=== PATIENT | female | born 1960 | race Caucasian/White ===

== ENCOUNTER 2024-04-26 20:15 | Emergency (ER) | payer OTHER ==
[2024-04-26 20:24] VITALS: TEMP 98.8; BMI 25.4
[2024-04-26] MEDS ORDERED: MAG HYDROX/AL HYDROX/SIMETH 30 ML UNIT-DOSE CUP ONE (21:12)
[2024-04-26] MEDS: MAG HYDROX/AL HYDROX/SIMETH 30 ML UNIT-DOSE CUP PO ONE (21:41)
[2024-04-26] MEDS ORDERED: ONDANSETRON 4 MG/2 ML VIAL ONE (21:43)
[2024-04-26] MEDS ORDERED: FAMOTIDINE 20 MG/50 ML IVPB 20 MG/50 ML MG IVPB ONE (21:43)
[2024-04-26 21:46] LABS: BASO % 0.8 % (0-2.0); EOS % 0.9 % (0-4.5); HEMOGLOBIN 13.3 GM/dL (10.7-15.3); LYMPH % 24.6 % (8-40); MCH 29.8 pg (25.7-33.7); MCHC 34.1 g/dl (32.0-36.0); MEAN CELL VOLUME 87.4 fl (80-96); MEAN PLT VOLUME 9.9 fl (7.5-11.1); MONO % 6.9 % (3.8-10.2); NEUT % 66.8 % (42.8-82.8); PLATELET COUNT 555 10^3/uL (134-434); RBC 4.46 M/mm3 (3.60-5.2); RDW 13.7 % (11.6-15.6); WHITE BLOOD COUNT 10.6 K/mm3 (4.0-10.0)
[2024-04-26] MEDS: FAMOTIDINE 20 MG/50 ML IVPB 20 MG/50 ML MG IVPB ONE (21:56)
[2024-04-26] MEDS: ONDANSETRON 4 MG/2 ML VIAL IVPUSH ONE (21:56)
[2024-04-26] MEDS: LACTATED RINGERS SOLUTION 1000 ML INFUS.BAG IV ONE (21:56)
[2024-04-26 22:03] VITALS: BP 127/81; PULSE 96; RESP 20
[2024-04-26 22:11] LABS: POTASSIUM 4.5 mmol/L (3.5-5.1)
[2024-04-26 22:13] LABS: CALCIUM 11.2 mg/dL (8.5-10.1)
[2024-04-26 22:13] LABS: PHOSPHOROUS 3.9 mg/dL (2.5-4.9)
[2024-04-26 22:14] LABS: ALBUMIN 3.9 g/dl (3.4-5.0); BLOOD UREA NITROGEN 19.1 mg/dL (7-18); MAGNESIUM 1.7 mg/dL (1.8-2.4)
[2024-04-26 22:17] LABS: CREATININE 0.7 mg/dL (0.55-1.3)
[2024-04-26 22:18] LABS: BILIRUBIN,TOTAL 0.4 mg/dL (0.2-1)
[2024-04-26 22:19] LABS: TOT PROT 7.6 g/dl (6.4-8.2)
[2024-04-26] MEDS ORDERED: MAGNESIUM 1GM/D5W - 1 GM/100 ML IVPB IVPB ONE (22:31)
[2024-04-26] MEDS: MAGNESIUM 1GM/D5W - 1 GM/100 ML IVPB IVPB ONE (22:45)
== END 2024-04-26 23:56 | disposition home or self-care (01) ==
LOC: JER 20:15
PROC: 3E033NZ Introduction of Analgesics, Hypnotics, Sedatives into Peripheral Vein, Percutaneous Approach (ICD-10-PCS; principal; 2024-04-26)
PROC: 3E033NZ Introduction of Analgesics, Hypnotics, Sedatives into Peripheral Vein, Percutaneous Approach (ICD-10-PCS; 2024-04-26)
PROC: 3E033NZ Introduction of Analgesics, Hypnotics, Sedatives into Peripheral Vein, Percutaneous Approach (ICD-10-PCS; 2024-04-26)
DX: R10.13 Epigastric pain (principal); E83.42 Hypomagnesemia
CPT/HCPCS: 36415; 80053; 83690; 83735; 84100; 85025; 93005; 93010; 99284-25

== ENCOUNTER 2024-05-01 18:33 | Inpatient (IN) | payer OTHER ==
[2024-05-01 20:19] LABS: EOS % 1.3 % (0-4.5); HEMATOCRIT 35.8 % (32.4-45.2); LYMPH % 21.1 % (8-40); MCH 29.7 pg (25.7-33.7); MCHC 33.4 g/dl (32.0-36.0); MEAN CELL VOLUME 88.9 fl (80-96); MEAN PLT VOLUME 10.6 fl (7.5-11.1); MONO % 6.6 % (3.8-10.2); PLATELET COUNT 445 10^3/uL (134-434); RBC 4.03 M/mm3 (3.60-5.2); RDW 13.5 % (11.6-15.6); WHITE BLOOD COUNT 9.3 K/mm3 (4.0-10.0)
[2024-05-01 20:20] LABS: EPI CELLS 12 /uL (0-25.1); HYALINE CASTS 1 /uL (0-3.1); URINE APPEARANCE CLOUDY; URINE BACTERIA 15 /uL (0-1359); URINE BILIRUBIN NEGATIVE (NEGATIVE); URINE COLOR YELLOW; URINE GLUCOSE (UA) NEGATIVE (NEGATIVE); URINE KETONE NEGATIVE (NEGATIVE); URINE LEUK ESTERASE 1+ (NEGATIVE); URINE NITRITE NEGATIVE (NEGATIVE); URINE PROTEIN NEGATIVE (NEGATIVE); URINE RBC 15 /uL (0-23.9); URINE UROBILINOGEN 0.2 mg/dL (0.2-1.0); URINE WBC 30 /uL (0-25.8)
[2024-05-01 20:34] LABS: POTASSIUM 4.1 mmol/L (3.5-5.1)
[2024-05-01 20:37] LABS: ALBUMIN 3.6 g/dl (3.4-5.0); BLOOD UREA NITROGEN 10.2 mg/dL (7-18); CALCIUM 10.8 mg/dL (8.5-10.1); MAGNESIUM 1.6 mg/dL (1.8-2.4)
[2024-05-01 20:40] LABS: CREATININE 0.8 mg/dL (0.55-1.3); PHOSPHOROUS 4.1 mg/dL (2.5-4.9)
[2024-05-01 20:41] LABS: BILIRUBIN,TOTAL 0.3 mg/dL (0.2-1)
[2024-05-01 20:42] LABS: TOT PROT 7.5 g/dl (6.4-8.2)
[2024-05-01] MEDS ORDERED: MAGNESIUM SULFATE IN WATER 2 GM/50 ML IVPB IVPB ONE (22:05)
[2024-05-01] MEDS: MAGNESIUM SULFATE IN WATER 2 GM/50 ML IVPB IVPB ONE (22:14)
[2024-05-02] MEDS: FOLIC ACID INJECTION - 1 MG, THIAMINE HCL 100 MG, MULTIVIT INJECTION ADULT 10 ML in SOD... IVPB ONE (01:34)
[2024-05-02] MEDS ORDERED: SODIUM CHLORIDE 1,000 ML IV SCH (02:45)
[2024-05-02] MEDS: SODIUM CHLORIDE 1,000 ML IV STA (03:28)
[2024-05-02] MEDS ORDERED: ZOLEDRONIC ACID/MAN/WATER 5 MG/100 ML INFUS..BTL IVPB ONE (03:45)
[2024-05-02] MEDS ORDERED: FUROSEMIDE 40 MG/4 ML INJECTABLE VIAL ONE (04:59)
[2024-05-02] MEDS: SODIUM CHLORIDE 1,000 ML IV SCH (05:09)
[2024-05-02] MEDS: FUROSEMIDE 40 MG/4 ML INJECTABLE VIAL IVPUSH ONE (05:10)
[2024-05-02] MEDS: ZOLEDRONIC ACID 4 MG in SODIUM CHLORIDE 100 ML IVPB ONE (05:10)
[2024-05-02 06:45] LABS: BASO % 0.7 % (0-2.0); EOS % 1.6 % (0-4.5); HEMATOCRIT 34.2 % (32.4-45.2); HEMOGLOBIN 11.3 GM/dL (10.7-15.3); LYMPH % 28.2 % (8-40); MCH 29.2 pg (25.7-33.7); MCHC 32.9 g/dl (32.0-36.0); MEAN CELL VOLUME 88.9 fl (80-96); MEAN PLT VOLUME 10.9 fl (7.5-11.1); MONO % 6.5 % (3.8-10.2); PLATELET COUNT 400 10^3/uL (134-434); RBC 3.85 M/mm3 (3.60-5.2); RDW 13.4 % (11.6-15.6); WHITE BLOOD COUNT 8.4 K/mm3 (4.0-10.0)
[2024-05-02 06:56] LABS: POTASSIUM 4.3 mmol/L (3.5-5.1)
[2024-05-02 06:58] LABS: CALCIUM 9.8 mg/dL (8.5-10.1)
[2024-05-02 06:59] LABS: ALBUMIN 3.5 g/dl (3.4-5.0); BLOOD UREA NITROGEN 7.1 mg/dL (7-18); MAGNESIUM 1.8 mg/dL (1.8-2.4)
[2024-05-02 07:02] LABS: CREATININE 0.6 mg/dL (0.55-1.3); PHOSPHOROUS 4.1 mg/dL (2.5-4.9)
[2024-05-02 07:04] LABS: BILIRUBIN,TOTAL 0.3 mg/dL (0.2-1); TOT PROT 6.8 g/dl (6.4-8.2)
[2024-05-02] MEDS: INSULIN ASPART SLIDING SCALE (NOVOLOG) 1 VIAL SQ SCH (08:45)
[2024-05-02] MEDS: PANTOPRAZOLE 40 MG TABLET PO SCH (11:33)
[2024-05-02] MEDS: ONDANSETRON *ODT* 4 MG TABLET SL PRN (11:33)
[2024-05-02] MEDS: ENOXAPARIN NA (PORCINE) 40 MG/0.4 ML DISP.SYRIN SQ SCH (11:34)
[2024-05-02] MEDS: MIRTAZAPINE 15 MG TABLET (FP) PO SCH (21:47)
[2024-05-03] MEDS: ACETAMINOPHEN 1000 MG/100 ML BAG IVPB ONE (05:28)
[2024-05-03 10:14] LABS: BASO % 0.3 % (0-2.0); EOS % 0.1 % (0-4.5); HEMATOCRIT 31.6 % (32.4-45.2); HEMOGLOBIN 10.7 GM/dL (10.7-15.3); LYMPH % 6.3 % (8-40); MCH 29.5 pg (25.7-33.7); MCHC 33.9 g/dl (32.0-36.0); MEAN CELL VOLUME 86.8 fl (80-96); MEAN PLT VOLUME 10.8 fl (7.5-11.1); MONO % 2.6 % (3.8-10.2); NEUT % 90.7 % (42.8-82.8); PLATELET COUNT 353 10^3/uL (134-434); RBC 3.64 M/mm3 (3.60-5.2); RDW 13.5 % (11.6-15.6); WHITE BLOOD COUNT 7.2 K/mm3 (4.0-10.0)
[2024-05-03 10:28] LABS: AMYLASE 68 U/L (25-115)
[2024-05-03 11:01] LABS: POTASSIUM 3.7 mmol/L (3.5-5.1)
[2024-05-03 11:03] LABS: ALBUMIN 2.9 g/dl (3.4-5.0); CALCIUM 8.5 mg/dL (8.5-10.1)
[2024-05-03 11:04] LABS: BLOOD UREA NITROGEN 4.2 mg/dL (7-18)
[2024-05-03 11:07] LABS: CREATININE 0.5 mg/dL (0.55-1.3)
[2024-05-03 11:08] LABS: BILIRUBIN,TOTAL 0.3 mg/dL (0.2-1); TOT PROT 5.9 g/dl (6.4-8.2)
[2024-05-03] MEDS: ACETAMINOPHEN 1000 MG/100 ML BAG IVPB PRN (15:29)
[2024-05-03 15:57] LABS: ANISOCYTOSIS 0; MACROCYTOSIS 0
[2024-05-03 21:52] VITALS: BMI 21.5
[2024-05-04 10:48] LABS: BASO % 0.7 % (0-2.0); EOS % 0.3 % (0-4.5); HEMATOCRIT 33.3 % (32.4-45.2); HEMOGLOBIN 11.2 GM/dL (10.7-15.3); MCH 29.6 pg (25.7-33.7); MCHC 33.6 g/dl (32.0-36.0); MEAN CELL VOLUME 87.9 fl (80-96); MEAN PLT VOLUME 11.2 fl (7.5-11.1); MONO % 5.1 % (3.8-10.2); NEUT % 74.9 % (42.8-82.8); PLATELET COUNT 355 10^3/uL (134-434); RBC 3.79 M/mm3 (3.60-5.2); RDW 13.1 % (11.6-15.6); WHITE BLOOD COUNT 6.8 K/mm3 (4.0-10.0)
[2024-05-04 11:05] LABS: POTASSIUM 3.6 mmol/L (3.5-5.1)
[2024-05-04 11:24] LABS: ALBUMIN 3.1 g/dl (3.4-5.0); BLOOD UREA NITROGEN 3.2 mg/dL (7-18); CALCIUM 8.5 mg/dL (8.5-10.1); MAGNESIUM 1.6 mg/dL (1.8-2.4)
[2024-05-04 11:27] LABS: BILIRUBIN,TOTAL 0.3 mg/dL (0.2-1); CREATININE 0.6 mg/dL (0.55-1.3); TOT PROT 6.3 g/dl (6.4-8.2)
[2024-05-04] MEDS ORDERED: MAGNESIUM SULF 50% (8.12 MEQ/2 ML-1 GM VIAL) IVPB ONE (12:37)
[2024-05-04] MEDS: MAGNESIUM SULF 50% (8.12 MEQ/2 ML-1 GM VIAL) IVPB ONE (15:55)
[2024-05-04 17:10] LABS: GLIADIN ANTIBODY IGA 3 units (0-19); GLIADIN ANTIBODY IGG 1 units (0-19); IG A QN SERUM. 184 mg/dL (87-352); TRANSGLUTAMINASE IGG < 2 U/mL (0-5)
[2024-05-04] MEDS: GABAPENTIN 300 MG CAPSULE PO SCH (21:38)
[2024-05-05 10:22] LABS: HEMATOCRIT 33.5 % (32.4-45.2); MCH 28.9 pg (25.7-33.7); MCHC 32.9 g/dl (32.0-36.0); MEAN CELL VOLUME 87.9 fl (80-96); MEAN PLT VOLUME 11.1 fl (7.5-11.1); PLATELET COUNT 373 10^3/uL (134-434); RBC 3.81 M/mm3 (3.60-5.2); RDW 13.6 % (11.6-15.6)
[2024-05-05 10:37] LABS: POTASSIUM 4.2 mmol/L (3.5-5.1)
[2024-05-05 10:49] LABS: BLOOD UREA NITROGEN 3.1 mg/dL (7-18); CALCIUM 8.6 mg/dL (8.5-10.1)
[2024-05-05 10:53] LABS: CREATININE 0.4 mg/dL (0.55-1.3); PHOSPHOROUS 1.6 mg/dL (2.5-4.9)
[2024-05-05 10:55] LABS: BILIRUBIN,TOTAL 0.4 mg/dL (0.2-1); TOT PROT 6.5 g/dl (6.4-8.2)
[2024-05-05] MEDS: ONDANSETRON 4 MG/2 ML VIAL IVPUSH PRN (10:57)
[2024-05-05] MEDS: SODIUM CHLORIDE 1,000 ML IV SCH (14:01)
[2024-05-05] MEDS ORDERED: METOCLOPRAMIDE HCL INJECTION 10 MG/2 ML VIAL IVPUSH PRN (16:08)
[2024-05-05] MEDS: METOCLOPRAMIDE HCL INJECTION 10 MG/2 ML VIAL IVPUSH PRN (18:03)
[2024-05-06] MEDS: LOSARTAN POTASSIUM 50 MG TABLET PO SCH (10:07)
[2024-05-06 10:40] LABS: BLOOD UREA NITROGEN 4.1 mg/dL (7-18); CALCIUM 8.3 mg/dL (8.5-10.1)
[2024-05-06 10:42] LABS: MAGNESIUM 1.9 mg/dL (1.8-2.4)
[2024-05-06 10:44] LABS: CREATININE 0.5 mg/dL (0.55-1.3); PHOSPHOROUS 1.5 mg/dL (2.5-4.9)
[2024-05-06 10:45] LABS: BILIRUBIN,TOTAL 0.2 mg/dL (0.2-1); TOT PROT 6.6 g/dl (6.4-8.2)
[2024-05-06] MEDS ORDERED: POTASSIUM PHOSPHATE 15 MM in DEXTROSE 5%-WATER - 250 ML IVPB ONE ×2 (12:15→13:00)
[2024-05-06] MEDS: NAPH,MB-DB/K PH,MBDB POWDER PACKET PO ONE (14:27)
[2024-05-06] MEDS: POTASSIUM PHOSPHATE 15 MM in DEXTROSE 5%-WATER - 250 ML IVPB ONE (15:10)
[2024-05-06] MEDS: DRONABINOL 2.5 MG CAPSULE PO SCH (17:21)
[2024-05-06] MEDS: BISACODYL 5 MG TABLET.DR (FP) PO ONE (18:58)
[2024-05-06] MEDS: ACETAMINOPHEN 1000 MG/100 ML BAG IVPB ONE (22:59)
[2024-05-07 20:05] VITALS: RESP 18
[2024-05-08 08:52] VITALS: BP 109/67; PULSE 109; TEMP 99.2
[2024-05-08] MEDS: METOCLOPRAMIDE HCL 10 MG TABLET (FP) PO SCH (10:32)
[2024-05-08 10:47] LABS: BASO % 0.7 % (0-2.0); EOS % 1.1 % (0-4.5); HEMATOCRIT 32.2 % (32.4-45.2); HEMOGLOBIN 10.8 GM/dL (10.7-15.3); LYMPH % 18.3 % (8-40); MCH 29.2 pg (25.7-33.7); MCHC 33.4 g/dl (32.0-36.0); MEAN CELL VOLUME 87.5 fl (80-96); MEAN PLT VOLUME 10.4 fl (7.5-11.1); MONO % 9.2 % (3.8-10.2); NEUT % 70.7 % (42.8-82.8); PLATELET COUNT 352 10^3/uL (134-434); RBC 3.68 M/mm3 (3.60-5.2); RDW 13.5 % (11.6-15.6); WHITE BLOOD COUNT 7.2 K/mm3 (4.0-10.0)
[2024-05-08 11:10] LABS: POTASSIUM 4.3 mmol/L (3.5-5.1)
[2024-05-08 11:20] LABS: ALBUMIN 2.9 g/dl (3.4-5.0); BLOOD UREA NITROGEN 11.3 mg/dL (7-18); CALCIUM 9.2 mg/dL (8.5-10.1)
[2024-05-08 11:23] LABS: CREATININE 0.7 mg/dL (0.55-1.3)
[2024-05-08 11:24] LABS: PHOSPHOROUS 1.9 mg/dL (2.5-4.9)
[2024-05-08 11:25] LABS: BILIRUBIN,TOTAL 0.3 mg/dL (0.2-1); TOT PROT 6.4 g/dl (6.4-8.2)
[2024-05-08] MEDS: NAPH,MB-DB/K PH,MBDB POWDER PACKET PO ONE (13:53)
== END 2024-05-08 15:50 | disposition home or self-care (01) | DRG 251 ==
LOC: JER 18:33 → JERBED 23:21 → J6S 05-02 09:51 → OBSVTOIN 05-05 10:37 → J6S 05-07 13:01
PROVIDERS: ADMIT Internal Medicine; ATTEND Internal Medicine
PROC: 0DB68ZX Excision of Stomach, Via Natural or Artificial Opening Endoscopic, Diagnostic (ICD-10-PCS; principal; 2024-05-04 11:00)
DX: R10.13 Epigastric pain (principal); E43 Unspecified severe protein-calorie malnutrition; E83.52 Hypercalcemia; E11.43 Type 2 diabetes mellitus with diabetic autonomic (poly)neuropathy; I10 Essential (primary) hypertension; K29.50 Unspecified chronic gastritis without bleeding; K31.84 Gastroparesis; R63.4 Abnormal weight loss; Z68.21 Body mass index [BMI] 21.0-21.9, adult; E86.0 Dehydration; N63.0 Unspecified lump in unspecified breast; E83.39 Other disorders of phosphorus metabolism
CPT/HCPCS: 0241U-QW; 36415; 71260-TC; 74177-TC; 76705-TC; 80053; 81003; 82150; 82306; 82330; 82340; 82397; 82784; 82962; 83036; 83516; 83690; 83735; 83970; 84100; 84155; 84165; 84436; 84484; 85025; 85027; 86140; 86334; 86790; 87077; 87086; 88300-TC; 88305-TC; 88342-TC; 93005; 93010; 99285-25; G0378; J0131; J3489; Q0162; Q9967

== ENCOUNTER → 2024-05-26 | Day surgery (SDC) | payer OTHER ==
[2024-05-25 11:50] VITALS: BMI 22.4
[~2024-05-26] MED LIST: MIDAZOLAM HCL 2 MG/2 ML SINGLE DOSE VIAL ONE
[2024-05-26 09:48] VITALS: RESP 14; TEMP 98
[2024-05-26 10:48] VITALS: BP 145/79; PULSE 78
== END | disposition home or self-care (01) ==
LOC: JASU-ENDO 04:23
PROVIDERS: ATTEND Internal Medicine Gastroenterology
PROC: 0DB78ZX Excision of Stomach, Pylorus, Via Natural or Artificial Opening Endoscopic, Diagnostic (ICD-10-PCS; 2024-05-26)
PROC: BD42ZZZ Ultrasonography of Stomach (ICD-10-PCS; 2024-05-26)
PROC: 0DJ08ZZ Inspection of Upper Intestinal Tract, Via Natural or Artificial Opening Endoscopic (ICD-10-PCS; 2024-05-26)
PROC: 0DB68ZX Excision of Stomach, Via Natural or Artificial Opening Endoscopic, Diagnostic (ICD-10-PCS; principal; 2024-05-26 08:00)
DX: K31.A22 Gastric intestinal metaplasia with high grade dysplasia (principal); R19.09 Other intra-abdominal and pelvic swelling, mass and lump
CPT/HCPCS: 82962; 88305-TC; 88341-TC; 88342-TC